=== PATIENT | female | born 1980 | race Caucasian/White ===

== ENCOUNTER 2023-09-15 08:43 | Outpatient (CLI) | payer OTHER, SELFPAY | END 2023-09-15 08:44 | disposition home or self-care (01) | PROVIDERS: PCP Family Medicine; Visit Provider Family Medicine | DX: Z00.00 Encounter for general adult medical examination without abnormal findings (principal); R53.83 Other fatigue; Z13.6 Encounter for screening for cardiovascular disorders; Z83.49 Family history of other endocrine, nutritional and metabolic diseases; Z11.59 Encounter for screening for other viral diseases | CPT/HCPCS: 80053; 80061; 82306; 84443; 86376; 86803 ==

== ENCOUNTER 2024-02-04 10:18 | Outpatient (CLI) | payer OTHER, SELFPAY ==
--- NOTE | 2024-02-04 10:15 | MM_ITS ---
Patient: JENN RAIN Facility:?[facility] Patient ID:?[id number] Site Patient ID:?[id number]. Site :?[id number] Study:?XRay-Breast Bilateral 3D W/CAD-02/04/2024 11:29:55 AM Ordering Physician:?Jenn Jose Final Report: BILATERAL SCREENING MAMMOGRAM WITH COMPUTER-AIDED DETECTION AND TOMOSYNTHESIS TECHNIQUE: CC and MLO views were obtained. These mammographic images have been obtained using full-field digital technique. These mammographic images were interpreted with the benefit of computer-aided detection. Breast Tomosynthesis was used in this interpretation. COMPARISON FILM: Baseline. FINDINGS: The breasts are heterogeneously dense, which may obscure small masses. IMPRESSION: There is no radiographic evidence for malignancy. ASSESSMENT: BI-RADS Category 1: Negative RECOMMENDATION: Routine screening mammogram in 1 year. A lay language report of this examination will be provided to the patient. Laith Macario M.D. Diagnostic Radiologist [email or web address] DSM/sp R& Transcribed: 7:17 p.m. SP/Dictated by: Laith Macario MD @ 02/04/2024 12:14:00 PM Signed by:?Laith Macario MD @02/05/2024 5:39:18 AM (Electronic Signature)
== END 2024-02-04 10:19 | disposition home or self-care (01) ==
LOC: MAMMO 10:19
PROVIDERS: PCP Family Medicine; Visit Provider Family Medicine
DX: Z12.31 Encounter for screening mammogram for malignant neoplasm of breast (principal); R92.2 Inconclusive mammogram
CPT/HCPCS: 77063; 77067

== ENCOUNTER 2025-05-10 09:47 | Outpatient (CLI) | payer OTHER, SELFPAY | END 2025-05-10 09:48 | disposition home or self-care (01) | LOC: NFLDREF 05-11 22:52 | PROVIDERS: PCP Family Medicine; Referring Provider Family Medicine; Visit Provider Physician Assistant Medical | DX: Z00.00 Encounter for general adult medical examination without abnormal findings (principal); R53.83 Other fatigue; M54.2 Cervicalgia; G89.29 Other chronic pain; M54.50 Low back pain, unspecified; L90.0 Lichen sclerosus et atrophicus; F41.9 Anxiety disorder, unspecified; Z13.21 Encounter for screening for nutritional disorder | CPT/HCPCS: 80053; 80061; 82306; 82607; 82728; 84443 ==

== ENCOUNTER 2025-07-06 10:04 | Outpatient (CLI) | payer OTHER, SELFPAY ==
--- NOTE | 2025-07-06 10:15 | CRLHL7_ITS ---
For Patients: As a result of the Century Cures Act, medical imaging exams and procedure reports are released immediately into your electronic medical record. You may view this report before your referring provider. If you have questions, please contact your health care provider. INDICATION: BILATERAL SCREENING MAMMOGRAM, ASYMPTOMATIC 45 Y/O FEMALE COMPARISON: 02/04/2024 TECHNIQUE: Digital mammogram in CC and MLO projections including computer-aided detection (CAD) and tomosynthesis. BREAST COMPOSITION: The breasts are heterogeneously dense, which may obscure small masses. FINDINGS: No suspicious findings. ASSESSMENT: BI-RADS 1 Negative RECOMMENDATION: Annual screening mammogram. A lay language report of this examination will be provided to the patient. Dictated by: Laith Macario MD @ 07/07/2025 08:58:31 (Electronically Signed)
== END 2025-07-06 10:05 | disposition home or self-care (01) ==
LOC: MAMMO 10:04
PROVIDERS: PCP Family Medicine; Visit Provider Physician Assistant Medical
DX: Z12.31 Encounter for screening mammogram for malignant neoplasm of breast (principal); R92.333 Mammographic heterogeneous density, bilateral breasts
CPT/HCPCS: 77063; 77067